=== PATIENT | female | born 1955 | race Caucasian/White ===

== ENCOUNTER → 2021-10-13 08:25 | Outpatient (BNVA) | payer MEDICARE, SELFPAY | PROVIDERS: Family Provider Nurse Practitioner Primary Care; PCP Nurse Practitioner Primary Care; Visit Provider Internal Medicine | DX: Z01.818 Encounter for other preprocedural examination (principal); Z86.010 Personal history of colon polyps | CPT/HCPCS: 87635 ==

== ENCOUNTER 2021-10-20 08:21 | Day surgery (SDC) | payer MEDICARE, MEDICAID, SELFPAY ==
[2021-10-20 07:06] VITALS: BMI 41.0
--- NOTE | 2021-10-20 07:44 | W.PM.OPSFHP ---
Same Day Surgery H&P Indication for Procedure/HPI DATE OF PROCEDURE: October 20, 2021 CHIEF COMPLAINT/INDICATIONFOR SURGICAL PROCEDURE: Perirectal pain and history of polyps PREOP DIAGNOSIS: Perirectal pain and a history of polyp PLANNED PROCEDURE: Operation Date: 10/20/21 09:45 Proposed Procedures p Colonoscopy(Not Applicable) - David Moncada MD Medications/Allergies* Home Medications Medication Instructions Recorded Confirmed Type ibuprofen 800 mg tablet (IBU) 800 mg PO TID PRN 07/24/19 10/09/21 History dicyclomine 10 mg capsule 10 mg PO TID PRN cap 07/25/19 10/09/21 History aspirin 81 mg chewable tablet 81 mg PO DAILY tab 02/04/21 10/09/21 History (Dori Chewable Low Dose Aspirin) atenolol 25 mg tablet See Rx Instructions PO DAILY PRN 02/04/21 10/09/21 History tab Allergies/Adverse Reactions Allergy/AdvReac Type Severity Reaction Status Date / Time [place] And Derivatives Allergy Unknown Unknown Unverified 10/09/21 11:07 strawberry Allergy Unknown Unknown Unverified 10/09/21 11:07 Sulfa (Sulfonamide Allergy Unknown Unknown Unverified 10/09/21 11:07 Antibiotics) Pertinent History/Comorbid Conditions* Medical History (Updated 10/09/21 @ 11:26 by David Moncada MD) Cigarette nicotine dependence Generalized anxiety disorder Social History Smoking and tobacco status: current every day smoker cigarettes Packs smoked per day: 1 Years cigarettes smoked: 48 Quit status (tobacco): not considering quitting Second hand smoke exposure: No Smoking risk assessment/counseling performed?: No Reason smoking risk assessment not done: patient refused Pertinent Exam Findings alert, oriented x 3, clear to auscultation bilaterally, regular rate & rhythm, operative site marked and procedure specific exam findings Recommendations Surgery/Procedure today Coding Level of Care Code Acute 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
--- NOTE | 2021-10-20 08:30 | P.ANESASSM_ITS ---
Pre-Anesthetic Assessment Height/Weight: Height 1.7 m Weight 118.841 kg Preop Diagnosis: Perirectal pain and a history of polyp Operation Date: 10/20/21 09:45 Proposed Procedures p Colonoscopy(Not Applicable) - David Moncada MD Familial anesthetic complications: none Was Beta Lori taken within 24 hours: Yes Was Clonidine taken within 24 hours: N/A Last intake: > 8hrs Social Tobacco and No alcohol Exam alert, oriented x 3, clear to auscultation bilaterally and regular rate & rhythm Airway Mallampati: Class III Dentition: other (missing) Pulmonary None reported chronic cough - was on oxygen after getting covid for a while CV/HEM ? PFO (I have hole in my heart) - states she was having TIAs None reported Hepatic None reported GI Gastroesophageal Reflux Disease Metabolic Morbid Obesity Musc/[facility] L ankle pain and swelling for years Neuropsych Transient Ischemic Attack Anesthetic Plan ASA status: 3 Risk of > 500 ml blood loss (7ml/kg in children): No Medications/Allergies Home Medications Medication Instructions Recorded Confirmed Last Taken Type ibuprofen 800 mg tablet (IBU) 800 mg PO TID PRN 07/24/19 10/09/21 Unknown History dicyclomine 10 mg capsule 10 mg PO TID PRN cap 07/25/19 10/09/21 Unknown History aspirin 81 mg chewable tablet 81 mg PO DAILY tab 02/04/21 10/09/21 Unknown History (Dori Chewable Low Dose Aspirin) atenolol 25 mg tablet See Rx Instructions PO DAILY PRN 02/04/21 10/09/21 Unknown History tab clonazepam 1 mg tablet (Klonopin) 2 mg PO .qhs #60 tab 08/20/21 10/09/21 Unknown Rx hydroxyzine pamoate 50 mg capsule 50 mg PO BID PRN #60 cap 08/20/21 10/09/21 Unknown Rx dibucaine 1 % rectal ointment 1 applic OK QID PRN #56 g 10/09/21 10/09/21 Unkn own Rx hydrocortisone 2.5 % topical cream 1 applic TOPICAL BID #28 g 10/09/21 10/09/21 Unknown Rx ondansetron 4 mg disintegrating 4 mg PO Q8H PRN 30 Days #30 tab 10/09/21 10/09/21 Unknown Rx tablet Allergies Allergy/AdvReac Type Severity Reaction Status Date / Time [place] And Derivatives Allergy Unknown Unknown Unverified 10/09/21 11:07 strawberry Allergy Unknown Unknown Unverified 10/09/21 11:07 Sulfa (Sulfonamide Allergy Unknown Unknown Unverified 10/09/21 11:07 Antibiotics) [facility] Anesthesia Medical History Cigarette nicotine dependence Generalized anxiety disorder Social History Smoking and tobacco status: current every day smoker cigarettes Packs smoked per day: 1 Years cigarettes smoked: 48 Quit status (tobacco): not considering quitting Second hand smoke exposure: No Smoking risk assessment/counseling performed?: No Reason smoking risk assessment not done: patient refused Data Anesthesia Cardiac Studies: No Data to Display
[2021-10-20 09:00] VITALS: BP 155/91; PULSE 69; RESP 18; TEMP 36.1; O2SAT 95
[2021-10-20] MEDS: sodium chloride 0.9% 1,000 ML 30 ML IV (09:08)
[2021-10-20 10:31] VITALS: BP 119/63; PULSE 65; RESP 18; TEMP 36.1; O2SAT 94
--- NOTE | 2021-10-20 10:32 | ANE.PACU2 ---
Inpatient post-anesthesia follow up: Airway intact: Yes Vital signs: Temperature 97 F Pulse Rate 65 Respiratory Rate 18 Blood Pressure 119/63 Pulse Oximetry 94 Oxygen Delivery Me thod Room Air Oxygen Flow Rate Fraction of Inspir ed Oxygen Hydration adequate: Yes Nausea and vomiting: No Pain level: 1 Mental status: Baseline
[2021-10-20 10:43] VITALS: BP 109/68; PULSE 64; RESP 18; O2SAT 95
== END 2021-10-20 10:56 | disposition home or self-care (01) ==
PROVIDERS: Family Provider Nurse Practitioner Primary Care; PCP Nurse Practitioner Primary Care; Visit Provider Internal Medicine
PROC: 0DJD8ZZ Inspection of Lower Intestinal Tract, Via Natural or Artificial Opening Endoscopic (ICD-10-PCS; CPT 45378; principal; 2021-10-20 09:45)
DX: K62.89 Other specified diseases of anus and rectum (principal); Z86.010 Personal history of colon polyps; Z79.82 Long term (current) use of aspirin; F17.210 Nicotine dependence, cigarettes, uncomplicated; K64.8 Other hemorrhoids; K57.30 Diverticulosis of large intestine without perforation or abscess without bleeding; Z86.16 Personal history of COVID-19; Z86.73 Personal history of transient ischemic attack (TIA), and cerebral infarction without residual deficits; K21.9 Gastro-esophageal reflux disease without esophagitis; E66.01 Morbid (severe) obesity due to excess calories; Z68.41 Body mass index [BMI] 40.0-44.9, adult
CPT/HCPCS: 45378; J2704; J7030

== ENCOUNTER → 2021-12-10 07:17 | Outpatient (BNVA) | payer MEDICARE, MEDICAID, SELFPAY | PROVIDERS: Family Provider Nurse Practitioner Primary Care; PCP Nurse Practitioner Primary Care; Visit Provider Psychiatry & Neurology Psychiatry | DX: F41.1 Generalized anxiety disorder (principal); F17.210 Nicotine dependence, cigarettes, uncomplicated | CPT/HCPCS: 99213 ==

== ENCOUNTER → 2022-12-10 08:29 | Outpatient (BNVA) | payer MEDICARE, MEDICAID, SELFPAY | PROVIDERS: Family Provider Nurse Practitioner Primary Care; PCP Nurse Practitioner Primary Care; Visit Provider Nurse Practitioner Family | DX: D23.62 Other benign neoplasm of skin of left upper limb, including shoulder (principal); L81.4 Other melanin hyperpigmentation; D22.5 Melanocytic nevi of trunk; Z71.89 Other specified counseling; L57.8 Other skin changes due to chronic exposure to nonionizing radiation; L02.02 Furuncle of face; L82.1 Other seborrheic keratosis; L57.0 Actinic keratosis; I87.2 Venous insufficiency (chronic) (peripheral) | CPT/HCPCS: 11102; 17000; 17003; 99214 ==

== ENCOUNTER → 2023-01-22 09:12 | Outpatient (BNVA) | payer MEDICARE, MEDICAID, SELFPAY | PROVIDERS: Family Provider Nurse Practitioner Primary Care; PCP Nurse Practitioner Primary Care; Visit Provider Nurse Practitioner Family | DX: D48.5 Neoplasm of uncertain behavior of skin (principal); L57.0 Actinic keratosis; L02.426 Furuncle of left lower limb; L02.425 Furuncle of right lower limb; L02.02 Furuncle of face | CPT/HCPCS: 17004; 99213 ==

== ENCOUNTER → 2023-03-11 08:25 | Outpatient (BNVA) | payer MEDICARE, MEDICAID, SELFPAY | PROVIDERS: Family Provider Nurse Practitioner Primary Care; PCP Nurse Practitioner; Visit Provider Nurse Practitioner Family | DX: L02.426 Furuncle of left lower limb (principal); L02.425 Furuncle of right lower limb; L02.02 Furuncle of face; D48.5 Neoplasm of uncertain behavior of skin; D22.5 Melanocytic nevi of trunk | CPT/HCPCS: 11102; 99213 ==

== ENCOUNTER 2024-10-13 11:00 | Oncology outpatient (recurring) (ONCR) | payer MEDICARE, MEDICAID, SELFPAY ==
--- NOTE | 2024-10-13 11:00 | PETR_ITS ---
PROCEDURE INFORMATION: Exam: PET/CT Skull Base to Mid-thigh Exam date and time: 10/13/2024 12:03 PM Age: 69 years old Clinical indication: Condition or disease; Primary cancer: Small cell lung cancer LABS AND CLINICAL REPORTS: Glucose: 93 mg/dl Treatment strategy for malignancy (PET staging): Initial Staging (PI) TECHNIQUE: Imaging protocol: Following at least four-hour fasting and following the injection of radiopharmaceutical, low dose CT images were obtained. Then, PET images were obtained. Attenuation corrected images were constructed using the CT scan. Fused images of PET and CT were reviewed. The standardized uptake values (SUV) reported below are maximum values within a region of interest, expressed in gm/ml. Exam includes orbital meatal line to mid-thigh. SUV normalization method: BodyWeight Radiopharmaceutical: 12.43 mCi F-18 FDG (Fluorodeoxyglucose), IV. Time of imaging post radiopharmaceutical administration: 55 minutes Injection site: right ac COMPARISON: Right upper quadrant ultrasound 09/28/2024, CT abdomen and pelvis 04/13/2014 FINDINGS: Brain: Visualized brain has normal physiologic uptake. Pharynx: No abnormal uptake. Larynx: No abnormal uptake. Lungs, pleura and trachea: A multilobulated solid right upper lobe mass measures 10.9 x 8.6 cm series 202, image 79 with elevated uptake, SUV max 46.0. A mass versus cluster of lymph nodes centered in the right paratracheal space extending into the superior right hilar region is identified measuring up to 5.7 x 4.7 cm in series 202/75 with uptake predominantly within its periphery, SUV max 29.1 on image 66. A small to moderate left pleural effusion is noted. Heart: Normal physiologic uptake. Mediastinal space: No abnormal uptake. Liver: No abnormal uptake. Diffuse hypodensity of the liver is compatible with steatosis. Gallbladder and biliary ducts: No abnormal uptake. Pancreas: No abnormal uptake. Spleen: No abnormal uptake. Adrenal glands: No abnormal uptake. Kidneys and ureters: Normal physiologic uptake. Stomach and bowel: No abnormal uptake. Colonic diverticula are present. Intraperitoneal and retroperitoneal spaces: Mild uptake is noted in regions of streaky and mild nodular density in the left upper quadrant peritoneal fat, SUV max 5.3 on image 137. Medial to the left colon in the left lower quadrant of the abdomen, a soft tissue density mass measuring 4.8 x 5.6 cm on image 183 is radiotracer avid, SUV max 39.2. These findings are new compared with 04/13/2014. Urinary bladder: The urinary bladder is decompressed with a mildly diffusely thick-walled appearance. Reproductive: The uterus is not identified, likely surgically absent. A cystic lesion in the pelvis superior to the urinary bladder measures 1.3 x 8.9 cm in the axial plane on series 202, image 220 small foci of elevated uptake in the periphery, greatest on the right, SUV max 6.8 on image 225 of series 202. Vasculature: No abnormal uptake. Lymph nodes: There are several radiotracer avid mesenteric lymph nodes in the mid to inferior left abdomen, for example measuring 1.9 cm in diameter on series 202, image 179, SUV max 39.0. These lymph nodes are new compared with the prior CT abdomen and pelvis of 04/13/2014. Small benign-appearing calcified mediastinal and left hilar lymph nodes are identified. Skeleton: Mild uptake in the bilateral glenohumeral joint capsules is likely inflammatory, without definite correlating lesions on the CT images. Degenerative changes within the spine are identified. A non radiotracer avid sclerotic lesion in the proximal right humeral metaphysis measuring approximately 7-[address] image 49 is likely related to a benign enchondroma. Soft tissues: Mild, likely inflammatory uptake is identified within regions of streaky density in the subcutaneous fat anterior to the abdominal rectus abdominis muscular sheath, SUV max 5.1 on PET image 162. A lobulated soft tissue density mass in the subcutaneous fat of the mid to distal left thigh measures 4.1 x [address] series 202, image 330, SUV max 32.3. METRICS: Mediastinal blood pool: SUV max 2.6, SUV mean 2.3 Liver uptake: SUV max 2.8, SUV mean 2.1 PET/PET skull to thigh INIT [id number] IMPRESSION: 1. A radiotracer avid right upper lobe mass is identified compatible with malignancy. 2. A right paratracheal/right hilar mass versus cluster of lymph nodes is radiotracer avid consistent with malignancy. 3. A cystic mass in the pelvis is noted with elevated uptake in its periphery. This structure may arise from the right or left ovary. This uptake may be related to inflammatory changes associated with a benign neoplasm. A malignant etiology cannot be excluded. 4. Radiotracer avid regions of streaky density in the left upper quadrant peritoneal fat is noted, which may be inflammatory related to peritoneal carcinomatosis. 5. A soft tissue density mass concerning for malignancy in the left lower quadrant of the abdomen medial to the left colon is noted with adjacent radiotracer avid lymphadenopathy. 6. A radiotracer avid soft tissue density mass in the subcutaneous fat of the left thigh is noted compatible with malignancy. 7. Small to moderate left pleural effusion. 8. A mildly thick walled appearance of the urinary bladder is noted, which can be related to incomplete distension or cystitis. 9. Additional nonurgent findings as detailed above.
== END 2024-10-16 23:59 | disposition home or self-care (01) ==
LOC: RAD 10-14 00:01 → ONCMED 10-16 09:16
PROVIDERS: Family Provider Nurse Practitioner Primary Care; PCP Nurse Practitioner; Visit Provider Internal Medicine Medical Oncology
DX: C34.90 Malignant neoplasm of unspecified part of unspecified bronchus or lung (principal); R91.8 Other nonspecific abnormal finding of lung field; R59.1 Generalized enlarged lymph nodes; K63.89 Other specified diseases of intestine; N32.89 Other specified disorders of bladder
CPT/HCPCS: 78815; A9552

== ENCOUNTER 2024-11-06 07:59 | Oncology outpatient (recurring) (ONCR) | payer MEDICARE, MEDICAID, SELFPAY ==
[2024-11-06 08:14] LABS: Basophils # 0.1 10^3/uL (0.0-0.1); Basophils % 1.1 %; Eosinophils # 0.3 10^3/uL (0.0-0.8); Eosinophils % 2.3 %; Hematocrit 30.6 % (36-47); Lymphocytes # 2.7 10^3/uL (0.8-4.8); Lymphocytes % 25.5 %; Mean Corpuscular HGB Conc 31.4 g/dL (30-55); Mean Corpuscular Hemoglobin 30.7 pg (27-33); Mean Corpuscular Volume 97.8 fl (85-98); Mean Platelet Volume 9.5 fL (7.4-10.4); Monocytes # 0.9 10^3/uL (0.2-0.9); Monocytes % 8.8 %; Neutrophils # 6.59 10^3/uL (1.8-7.7); Neutrophils % 61.7 %; Nucleated Red Blood Cells % 0 %; Platelet Count 451 10^3/cmm (157-399); Red Blood Count 3.13 10^6/uL (3.85-5.65); Red Cell Distribution Width 17.6 % (12.1-15.1); White Blood Count 10.69 10^3/uL (3.29-11.43)
[2024-11-06 08:38] LABS: Alanine Aminotransferase 11 U/L (0-33); Albumin Level 3.4 g/dL (3.5-5.2); Alkaline Phosphatase 75 U/L (35-105); Anion Gap 15.8 (5-19); Aspartate Amino Transferase 24 U/L (0-32); Blood Urea Nitrogen 16 mg/dL (8-23); Carbon Dioxide 26 mmol/L (22-29); Chloride 97 mmol/L (98-107); Creatinine Clr Calc Pharmacy 61.9832; Globulin 4.8 g/dL (1.3-4.6); Glomerular Filtration Rate 49.4 mL/min (90-130); Glucose 93 mg/dL (65-115); Osmolality Calculated 281 mOsm/kg (285-295); Potassium 3.8 mmol/L (3.5-5.1); Sodium 135 mmol/L (136-145); Total Bilirubin 0.3 mg/dL (0.15-1.2); Total Protein 8.2 g/dL (6.6-8.7)
== END 2024-11-15 23:59 | disposition home or self-care (01) ==
LOC: ONCMED 08:00
PROVIDERS: Family Provider Nurse Practitioner Primary Care; PCP Nurse Practitioner; Visit Provider Internal Medicine Medical Oncology
DX: C34.91 Malignant neoplasm of unspecified part of right bronchus or lung (principal); C26.1 Malignant neoplasm of spleen; G89.3 Neoplasm related pain (acute) (chronic); R19.00 Intra-abdominal and pelvic swelling, mass and lump, unspecified site; Z87.891 Personal history of nicotine dependence
CPT/HCPCS: 36415; 80053; 85025; 99214

== ENCOUNTER → 2025-01-04 08:34 | Outpatient (BNVA) | payer MEDICARE, MEDICAID, SELFPAY | PROVIDERS: Family Provider Nurse Practitioner Primary Care; PCP Nurse Practitioner; Referring Provider Internal Medicine Medical Oncology; Visit Provider Student in an Organized Health Care Education/Training Program | DX: C34.91 Malignant neoplasm of unspecified part of right bronchus or lung (principal) | CPT/HCPCS: 99203 ==